=== PATIENT | male | born 1960 | race African-American/Black ===

== ENCOUNTER 2016-10-22 12:54 | Emergency (ER) | payer MEDICARE, MEDICAID ==
[~2016-10-22] VITALS: Ht 170.2 cm; Wt 54.5 kg
[2016-10-22 12:33] VITALS: BP 113/69; PULSE 82; RESP 21; O2SAT 99
--- NOTE | 2016-10-22 13:02 | ED.REPORT ---
HPI-Abd Pain M 40 and Over Date of Service Oct 22, 2016 ED Provider: Scott Barrera MD Patient is a 56 year old male with a history of pancreatitis who presents to the ED via EMS complaining of abdominal pain onset 0500 this morning. Associated symptoms include nausea, mid back pain, and vomiting 3 times today. Patient denies fever. He reports that the last time he had pancreatitis was in May of 2016 and it was recommended that he have a Whipple but denied the procedure. The patient also has a history of heavy drinking but currently only has an occasional drink. Nursing Notes Stated Complaint: ABDOMINAL PAIN Chief Complaint: Male Abdominal Pain Nursing Notes Reviewed: Yes Allergies: Coded Allergies: No Known Allergies (Unverified , 10/22/16) Scheduled Lansoprazole DR (Prevacid) 30 Mg Capsule 30 MG PO DAILY Scheduled PRN Hydrocodone-Acetaminophen 5-325 mg (Hydrocodone-Acetaminophen 5-325 mg) 1 Each Tablet 1 TABLET PO Q4H PRN PRN For Pain Miscellaneous Medications Cholecalciferol (Vitamin D3) (Vitamin D3) 4,000 Unit Capsule 4,000 UNIT PO Lipase/Protease/Amylase (Pancreaze Dr 10,500 Unit Cap) 10.5-35.5K Capsule.dr 1 EACH PO Multivitamin (Once Daily) 1 Each Tablet 1 EACH PO General Time Seen by MD: 13:01 Chief Complaint Abdominal pain Hx Obtained From: Patient Arrived By: Walk-in Sudden in Onset?: Yes Onset Occurred: 5 - 8 hours ago Symptom Duration: Since onset Recent Healthcare: No recent hospitalization Similar Sx Previous: Yes Past Medical History Past Medical History pancreatitis lung cancer Past Surgical History biliary bipass Reports: Cholecystectomy Smoking History Unknown if Ever Smoker Social History history of heavy drinking Alcohol Use: "Social" Ambulatory Status Independent Review of Systems Constitutional: Denies: Fever Respiratory: Denies: Non-productive cough, Shortness of breath GI: Reports: Abdominal pain, Nausea, Vomiting, Denies: Hematemesis Musculoskeletal: Reports: Back pain Complete sys rev & neg: except as marked. Physical Exam Initial Vital Signs Vital Signs (First) Date Time Temp Pulse Resp B/P Pulse Ox O2 Delivery O2 Flow Rate FiO2 10/22/16 12:33 36.7 82 21 113/69 99 Room Air Initial VS: Reviewed General/Constitutional: Awake, Alert, No acute distress Respiratory / Chest: Atraumatic, Breath sounds NL, Breath sounds = bilat, No respiratory distress Cardiovascular: Heart rate NL, Regular rhythm, Heart sounds NL, No murmurs Abdomen: Atraumatic, Soft, No guarding, No rebound Tenderness/Guarding/Rebound: Positive: Tender epigastric Back: Atraumatic, Full range of motion, No CVA tenderness Head / Eyes: Atraumatic, Normocephalic, PERRL, EOMI ENT: Atraumatic, Airway patent, Mucous membranes moist Skin: Atraumatic, Color NL, No rash, Warm, Dry Neurologic: Oriented X3, Speech NL, No motor deficits, No sensory deficits Neck: Atraumatic, Supple, Full range of motion Psychiatric: Affect NL, Mood NL Interpretation & Diagnostics Lab Results Interpretation Result Diagram: 10/22/16 1310 10/22/16 1310 Test 10/22/16 13:10 White Blood Count 4.3th/mm3 (3.8-10.1) Red Blood Count 4.58mil/mm3 (4.40-5.80) Hemoglobin 14.1g/dL (13.8-17.2) Hematocrit 40.2% (41.0-50.0) Mean Corpuscular Volume 87.8fL (81-100) Mean Corpuscular Hemoglobin 30.8pg (27.0-35.0) Mean Corpuscular Hemoglobin Concent 35.1% (32.0-37.0) Red Cell Distribution Width 12.3% (12.3-15.4) Platelet Count 348bil/L (150-400) Neutrophils (%) (Auto) 62.8% (40-74) Lymphocytes (%) (Auto) 26.4% (14-46) Monocytes (%) (Auto) 8.5% (4-12) Eosinophils (%) (Auto) 1.9% (0-5) Basophils (%) (Auto) 0.2% (0-3) Hold Blue Top Tube Received (Received) Sodium Level 130mEq/L (134-144) Potassium Level 4.5mEq/L (3.5-5.2) Chloride Level 91mEq/L (97-108) Carbon Dioxide Level 24mmol/L (18-29) Blood Urea Nitrogen 7mg/dL (6-24) Creatinine 0.66mg/dL (0.76-1.27) Estimat Glomerular Filtration Rate 134mL/min (>59) Glucose Level 94mg/dL (60-99) Calcium Level 9.4mg/dL (8.5-10.1) Magnesium Level 2.0mg/dL (1.6-2.6) Total Bilirubin 0.2mg/dL (0.0-1.2) Aspartate Amino Transf (AST/SGOT) 19U/L (0-50) Alanine Aminotransferase (ALT/SGPT) 9U/L (0-44) Alkaline Phosphatase 100U/L (25-150) Total Protein 6.9g/dL (6.4-8.4) Albumin 4.4g/dL (3.4-5.0) Lipase 12U/L (13-60) Re-Eval/Medical Decision Med Decision/Clinical Course 56-year-old male chronic pancreatitis history of biliary bypass and cholecystectomy presenting with epigastric pain. The questioning it sounds as if his car broke down and therefore he called an ambulance to bring him in as he had nowhere to go. His lipase is normal. Mild epigastric tenderness which resolved with morphine. His vital signs are stable. He appears quite well and is tolerating fluids. He will be discharged home with bland diet times to follow up primary doctor return precautions given. Source of Hx: Old records Time of Eval: 14:13 Re-Evaluation/Progress Note: Discussed lab results and plan for discharge. The patient understands and agrees to the plan for discharge. All questions were addressed. Counseled Regarding: Diagnosis, Lab results, Need for follow-up, When/why to return to ED Discharge & Departure Primary Impression: Pancreatitis Chronicity: chronic Pancreatitis type: unspecified pancreatitis type Qualified Code: K86.1 - Other chronic pancreatitis Disposition: Home Vital Signs - All Vital Signs Date Time Temp Pulse Resp B/P Pulse Ox O2 Delivery O2 Flow Rate FiO2 10/22/16 12:33 36.7 82 21 113/69 99 Room Air )( All Prior VS Reviewed: Yes Condition: Stable Patient Instructions: Pancreatitis (ED) Additional Instructions: Take pain medication as prescribed. Follow up with your primary care physician and GI doctor. Please return to the emergency department if you develop any new or worsening symptoms including increasing abdominal pain, nausea, or vomiting. Scribe Attestation Portions of this note were transcribed by Dr. Job Thomson-Valadez personally performed the history, physical exam and medical decision-making; I reviewed and confirmed the accuracy of the information in the transcribed note. Signed by: Dale Vegas, 10/22/16 and 1326 Scott Barrera MD Oct 22, 2016 13:02 Carlee Pride Oct 22, 2016 13:26
[2016-10-22] MEDS ORDERED: MULT-666 PO (13:05)
[2016-10-22] MEDS ORDERED: LIPA1CAP PO (13:05)
[2016-10-22] MEDS ORDERED: CHOL40003 PO (13:05)
[2016-10-22] MEDS ORDERED: LANS30CA14 PO (13:05)
[2016-10-22] MEDS ORDERED: 0.9% Sodium Chloride 1,000 ML IV ONE (13:23)
[2016-10-22] MEDS ORDERED: Ondansetron 2 mg/mL 2 mL Inj IVPUSH PRN (13:25)
[2016-10-22 13:45] LABS: BASOPHILS % (AUTO) 0.2 % (0-3); EOSINOPHILS % (AUTO) 1.9 % (0-5); MONOCYTES % (AUTO) 8.5 % (4-12); Mean Corpuscular Hemoglobin 30.8 pg (27.0-35.0); Mean Corpuscular Volume 87.8 fL (81-100); NEUTROPHILS % (AUTO) 62.8 % (40-74); Platelet Count 348 bil/L (150-400)
[2016-10-22] MEDS ORDERED: HYDR-4003 PO (14:16)
[2016-10-22 14:39] VITALS: BP 124/62; PULSE 92; RESP 20; O2SAT 99
== END 2016-10-22 14:30 | disposition home or self-care (01) ==
LOC: EDBD 12:54 → SED 12:54
DX: K86.1 Other chronic pancreatitis (principal); Z85.118 Personal history of other malignant neoplasm of bronchus and lung
CPT/HCPCS: 36415; 80053; 83690; 83735; 85025; 96374; 96375; 99284; J2270; J2405; J7030